=== PATIENT | male | born 1975 ===

== ENCOUNTER 2018-05-26 20:02 | Emergency (ER) | payer SELFPAY ==
[2018-05-26 20:07] VITALS: BP 149/90; PULSE 100; RESP 18; TEMP 100; O2SAT 98
--- NOTE | 2018-05-26 20:42 | C.PDOC ---
History Of Present Illness 43 y/o M p/w cough x 2 weeks. States has sore throat, can't stop coughing, causing thoracic and head pain with coughs. Also with congestion. Denies fever, chills, dyspnea, nausea, vomiting. Time Seen by Provider: 05/26/18 20:15 Chief Complaint (Nursing): Cough, Cold, Congestion Past Medical History Vital Signs: Last Vital Signs Temp 100 F H 05/26/18 20:04 Pulse 100 H 05/26/18 20:04 Resp 18 05/26/18 20:04 BP 149/90 05/26/18 20:04 Pulse Ox 98 05/26/18 20:04 - Medical History PMH: HTN Family History: States: No Known Family Hx - Social History Hx Alcohol Use: Yes Hx Substance Use: No - Immunization History Hx Tetanus Toxoid Vaccination: No Hx Influenza Vaccination: No Hx Pneumococcal Vaccination: No Review Of Systems Except As Marked, All Systems Reviewed And Found Negative. Constitutional: Negative for: Fever Respiratory: Negative for: Shortness of Breath Physical Exam - Physical Exam Additional Physical Exam Comments: Gen: NAD head: NC/AT Eyes; PERRL ENT: MMM. NO pharyngeal erythema or exudates Neck: Supple Chest: Reproducible soreness CV: Regular rate Lungs: CTA b/l Abd: Soft, nT Back: No CVA tenderness Skin; No rash Exytremites; No edema Neuro: Alert ED Course And Treatment O2 Sat by Pulse Oximetry: 98 Medical Decision Making Medical Decision Making: CXR no consolidation. Toradol and tessalon pearls administered. Disposition - Disposition Disposition: HOME/ ROUTINE Disposition Time: 21:15 Condition: STABLE Prescriptions: Benzonatate [Tessalon Perles] 200 mg PO TID #30 sgl Instructions: Cough in Adults Forms: [facility] (Djiboutian) - Clinical Impression Clinical Impression: Cough
--- NOTE | 2018-05-27 10:16 | RAD ---
HISTORY: cough COMPARISON: None available TECHNIQUE: Chest PA and lateral FINDINGS: LUNGS: No focal consolidation. Please note that chest x-ray has limited sensitivity for the detection of pulmonary masses. PLEURA: No significant pleural effusion identified. No definite pneumothorax . CARDIOVASCULAR: Heart size appears within normal limits. No atherosclerotic calcification present. OSSEOUS STRUCTURES: No acute osseous abnormality identified. VISUALIZED UPPER ABDOMEN: Unremarkable. OTHER FINDINGS: None. IMPRESSION: No focal consolidation identified.
== END 2018-05-26 21:59 | disposition home or self-care (01) ==
LOC: C.ER 20:02
DX: R05 Cough (principal); I10 Essential (primary) hypertension
CPT/HCPCS: 71046; 87804; 96372; 99283; J1885